=== PATIENT | female | born 1985 | race Hispanic/Latino ===

== ENCOUNTER 2023-03-26 07:16 | Emergency (ER) | payer BC, SELFPAY ==
[2023-03-26] MEDS ORDERED: Prochlorperazine 10 MG/2 ML VIAL ONE (07:41)
[2023-03-26] MEDS ORDERED: Ketorolac Tromethamine 30 MG/ML VIAL ONE (07:42)
== END 2023-03-26 09:34 | disposition home or self-care (01) ==
LOC: CSHERS 07:16
DX: G43.919 Migraine, unspecified, intractable, without status migrainosus (principal); I10 Essential (primary) hypertension; F17.210 Nicotine dependence, cigarettes, uncomplicated
CPT/HCPCS: 36416; 96361; 96374; 96375; J0780; J1885